=== PATIENT | female | born 1965 | race African-American/Black ===

== ENCOUNTER 2018-05-05 13:15 | Emergency (ER) | payer OTHER ==
[2018-05-05] MEDS ORDERED: IPRATROPIUM-ALBUTEROL 3 ML NEB INHALATION STA (13:28)
[2018-05-05] MEDS ORDERED: KETOROLAC 30 MG/ML 1 ML VIAL IVP STA (13:28)
--- NOTE | 2018-05-05 13:37 | ED ---
Chest Pain HPI - General Chief Complaint: Chest Pain Stated Complaint: chest pain Time Seen by Provider: 05/05/18 13:15 Source: patient, EMS, RN notes reviewed Mode of arrival: EMS Limitations: no limitations - History of Present Illness Initial Comments: This is a 53-year-old female who currently is in treatment program for heroin abuse who is a smoker who presents with complaints of a cough going on since 22 of April he's had chills fever green-yellow phlegm some sharp pressure- like left-sided chest pain. No nausea vomiting diarrhea or other symptoms. She was brought in by EMS for evaluation. She states it does hurt to move her left side. MD Complaint: chest pain, other - Related Data Home Medications Medication Instructions Recorded Confirmed Acetaminophen Tab [Tylenol Tab] 650 mg PO Q4H PRN 05/05/18 05/05/18 Benztropine Mesylate [Cogentin] 0.5 mg PO BID 05/05/18 05/05/18 Calc/Mag 2 tab PO TID 05/05/18 05/05/18 Chlorpheniramine Maleate 4 mg PO Q4H PRN 05/05/18 05/05/18 [Chlor-Trimeton] Ibuprofen [Motrin] 600 mg PO Q6H PRN 05/05/18 05/05/18 Cait Tussin 10 ml PO Q4H PRN 05/05/18 05/05/18 Multivitamins, Thera [Multivitamin 1 tab PO DAILY 05/05/18 05/05/18 (formulary)] QUEtiapine [SEROquel] 800 mg PO HS 05/05/18 05/05/18 Sertraline [Zoloft] 50 mg PO DAILY 05/05/18 05/05/18 Thiamine [Vitamin B-1] 100 mg PO DAILY 05/05/18 05/05/18 cloNIDine HCL [Catapres] 0.1 - 0.3 mg PO Q4H PRN 05/05/18 05/05/18 Previous Rx's Medication Instructions Recorded Albuterol Inhaler [Ventolin Hfa 2 puff INHALATION Q6HR PRN #1 05/05/18 Inhaler] inhaler Azithromycin [Zithromax Z-pack] 250 mg PO DIRECTED #6 tab 05/05/18 Nicotine 21Mg/24Hr Patch [Habitrol] 1 each TRANSDERM DAILY #42 patch 05/05/18 predniSONE 20 mg PO BID #10 tab 05/05/18 Allergies Allergy/AdvReac Type Severity Reaction Status Date / Time codeine Allergy Itching Verified 05/05/18 13:45 morphine Allergy Itching Verified 05/05/18 13:45 Penicillins Allergy Itching Verified 05/05/18 13:45 Review of Systems ROS Statement: Those systems with pertinent positive or pertinent negative responses have been documented in the HPI. ROS Other: All systems not noted in ROS Statement are negative. EKG Findings - EKG Results: EKG: interpreted by STEFAN, sinus rhythm (EKG shows sinus bradycardia 54. Interval 166 QRS duration 82 QT since QTC 4:30/407 nonspecific T-wave configuration) Past Medical History Additional Past Medical History / Comment(s): pancreatitis History of Any Multi-Drug Resistant Organisms: None Reported Additional Past Surgical History / Comment(s): right wrist Past Psychological History: Bipolar Smoking Status: Current every day smoker Past Alcohol Use History: Abuse, Daily Past Drug Use History: Cocaine General Exam - General Exam Comments Initial Comments: This is a well-developed well-nourished awake alert oriented 3 female Limitations: no limitations General appearance: alert, anxious Head exam: Present: atraumatic, normocephalic, normal inspection Eye exam: Present: normal appearance, PERRL, EOMI. Absent: scleral icterus, conjunctival injection, periorbital swelling ENT exam: Present: normal exam, mucous membranes moist Neck exam: Present: normal inspection. Absent: tenderness, meningismus, lymphadenopathy Respiratory exam: Present: wheezes, chest wall tenderness (Reproducible tenderness palpation along the left costal sternal costochondral margin.), decreased breath sounds. Absent: respiratory distress, rales, rhonchi, stridor Cardiovascular Exam: Present: regular rate, normal rhythm, normal heart sounds. Absent: systolic murmur, diastolic murmur, rubs, gallop, clicks GI/Abdominal exam: Present: soft, normal bowel sounds. Absent: distended, tenderness, guarding, rebound, rigid Extremities exam: Present: normal inspection, full ROM, normal capillary refill. Absent: tenderness, pedal edema, joint swelling, calf tenderness Back exam: Present: normal inspection Neurological exam: Present: alert, oriented X3, CN II-XII intact Psychiatric exam: Present: normal affect, normal mood Skin exam: Present: warm, dry, intact, normal color. Absent: rash Course Vital Signs 05/05/18 05/05/18 05/05/18 13:19 14:01 14:07 Temperature 98.2 F Pulse Rate 60 56 L 62 Respiratory 20 Rate Blood Pressure 138/92 O2 Sat by Pulse 97 Oximetry 05/05/18 05/05/18 14:30 15:07 Temperature Pulse Rate 83 62 Respiratory 18 18 Rate Blood Pressure 158/83 127/86 O2 Sat by Pulse 99 99 Oximetry Chest Pain MDM - MDM I did review the imaging no acute findings I did discuss findings with patient. Visual be discharged the presentation is consistent asthmatic bronchitis. Patient will be also started on nicotine patches started quit smoking. Disposition Clinical Impression: Asthmatic bronchitis, Bronchospasm, Chest wall syndrome, Smoking Disposition: HOME SELF-CARE Condition: Good Instructions: Costochondritis (ED), Bronchospasm (ED), Acute Bronchitis (ED), How to Stop Smoking (ED) Prescriptions: Albuterol Inhaler [Ventolin Hfa Inhaler] 2 puff INHALATION Q6HR PRN #1 inhaler PRN Reason: Dyspnea Azithromycin [Zithromax Z-pack] 250 mg PO DIRECTED #6 tab Nicotine 21Mg/24Hr Patch [Habitrol] 1 each TRANSDERM DAILY #42 patch predniSONE 20 mg PO BID #10 tab Is patient prescribed a controlled substance at d/c from ED?: No Referrals: Nonstaff,Physician [REFERRING] - 1-2 days
[2018-05-05 14:39] LABS: Basophils # (A) 0.1 k/uL (0-0.2); Basophils % (A) 1 %; Eosinophils # (A) 0.2 k/uL (0-0.7); Eosinophils % (A) 2 %; HCT 45.2 % (34.0-46.0); HGB 14.8 gm/dL (11.4-16.0); Lymphocytes # (A) 1.8 k/uL (1.0-4.8); Lymphocytes % (A) 22 %; MCH 30.7 pg (25.0-35.0); MCHC 32.9 g/dL (31.0-37.0); MCV 93.5 fL (80.0-100.0); Mean Platelet Volume 7.4; Monocytes # (A) 0.4 k/uL (0-1.0); Monocytes % (A) 4 %; Neutrophils # (A) 5.9 k/uL (1.3-7.7); Neutrophils % (A) 70 %; Platelet Count 213 k/uL (150-450); RBC 4.83 m/uL (3.80-5.40); RDW 13.5 % (11.5-15.5); WBC 8.4 k/uL (3.8-10.6)
--- NOTE | 2018-05-05 14:49 | XR ---
EXAMINATION TYPE: XR chest 2V DATE OF EXAM: 05/05/2018 COMPARISON: NONE HISTORY: Cough TECHNIQUE: Frontal and lateral views of the chest are obtained. FINDINGS: There is no focal air space opacity, pleural effusion, or pneumothorax seen. The cardiac silhouette size is within normal limits. The osseous structures are intact. Degenerative changes of the acromioclavicular joint are noted. IMPRESSION: No acute cardiopulmonary process.
[2018-05-05 14:50] LABS: D-Dimer 0.41 mg/L FEU (<0.60); Prothrombin Time 9.6 sec (9.0-12.0)
[2018-05-05 14:51] LABS: ALT 25 U/L (9-52); AST 25 U/L (14-36); Albumin 3.9 g/dL (3.5-5.0); Alkaline Phosphatase 101 U/L (38-126); Amylase 101 U/L (30-110); Anion Gap 6 mmol/L; Blood Urea Nitrogen 13 mg/dL (7-17); Calcium 9.9 mg/dL (8.4-10.2); Carbon Dioxide 30 mmol/L (22-30); Chloride 106 mmol/L (98-107); Glucose 75 mg/dL (74-99); Lipase 356 U/L (23-300); Magnesium 2.2 mg/dL (1.6-2.3); Partial Thromboplastin Time 23.4 sec (22.0-30.0); Sodium 142 mmol/L (137-145); Total Bilirubin 0.4 mg/dL (0.2-1.3); Total Protein 6.9 g/dL (6.3-8.2)
[2018-05-05 15:06] LABS: Creatine Kinase 95 U/L (30-135)
[2018-05-05 15:18] LABS: Creatine Kinase MB 0.5 ng/mL (0.0-2.4); Troponin I <0.012 ng/mL (0.000-0.034)
[2018-05-05] MEDS ORDERED: NICOTINE 21MG/24HR PATCH TRANSDERM STA (15:50)
[2018-05-05 15:55] VITALS: BP 156/68; PULSE 57; RESP 19; TEMP 97.5
== END 2018-05-05 16:16 | disposition home or self-care (01) ==
LOC: EC 13:15
DX: J45.909 Unspecified asthma, uncomplicated (principal); R07.1 Chest pain on breathing; F31.9 Bipolar disorder, unspecified; F17.200 Nicotine dependence, unspecified, uncomplicated; Z79.899 Other long term (current) drug therapy; Z88.0 Allergy status to penicillin; Z88.5 Allergy status to narcotic agent
CPT/HCPCS: 36415; 94640; 93005; 85379; 83880; 80053; 82150; 82550; 82553; 83690; 83735; 84484; 85025; 85610; 85730; 87040; 71046; 99285; 96374; S4990; J1885